=== PATIENT | male | born 1975 | race Caucasian/White ===

== ENCOUNTER 2017-07-10 02:22 | Emergency (ER) | payer OTHER ==
[2017-07-10] MEDS ORDERED: Lidocaine 1% 20 ML MDV INJECT ONE (02:40)
[2017-07-10] MEDS ORDERED: Bacitracin Oint 1 GM U/D Packet TOP ONE (02:40)
--- NOTE | 2017-07-10 03:11 | EDM.PDOC ---
ED HPI GENERAL MEDICAL PROBLEM - General Chief Complaint: Upper Extremity Injury/Pain Stated Complaint: SMASHED RIGHT RING FINGER Time Seen by Provider: 07/10/17 03:07 - History of Present Illness INITIAL COMMENTS - FREE TEXT/NARRATIVE: HISTORY AND PHYSICAL: History of present illness: Patient is 41-year-old male presents with a concern of acute injury to the fourth digit of his right hand that occurred tonight at work when he smashed it. He denies other trauma concern states his tetanus is up-to-date Review of systems: As per history of present illness and below otherwise all systems reviewed and negative. Past medical history: As per history of present illness and as reviewed below otherwise noncontributory. Surgical history: As per history of present illness and as reviewed below otherwise noncontributory. Social history: No reported history of drug or alcohol abuse. Family history: As per history of present illness and as reviewed below otherwise noncontributory. Physical exam: HEENT: Atraumatic, normocephalic, pupils reactive, negative for conjunctival pallor or scleral icterus, mucous membranes moist, throat clear, neck supple, nontender, trachea midline. Lungs: Clear to auscultation, breath sounds equal bilaterally, chest nontender. Heart: S1S2, regular, negative for clicks, rubs, or JVD. Abdomen: Soft, nondistended, nontender. Negative for masses or hepatosplenomegaly. Negative for costovertebral tenderness. Pelvis: Stable nontender. Genitourinary: Deferred. Rectal: Deferred. Extremities: Patient has a small laceration approximately 1 cm fourth digit of his right hand Cima's neurovascular exam is unremarkable. Neuro: Awake, alert, oriented. Cranial nerves II through XII unremarkable. Cerebellum unremarkable. Motor and sensory unremarkable throughout. Exam nonfocal. Diagnostics: X-ray fourth digit right hand Therapeutics: Wound was anesthetized with 1% lidocaine irrigated Cosopt 0.9 normal saline closed with a single 4-0 nylon interrupted suture dressing was applied aluminum/ foam splint was also applied Impression: #1 fracture distal phalanx fourth digit right hand #2 laceration fourth digit Definitive disposition and diagnosis as appropriate pending reevaluation and review of above. right index finger Pain Score (Numeric/FACES): 2 - Related Data Allergies Allergy/AdvReac Type Severity Reaction Status Date / Time No Known Allergies Allergy Verified 07/10/17 02:28 Home Meds: Home Meds . [No Known Home Meds] 07/10/17 [History] Past Medical History - Past Health History Medical/Surgical History: Denies Medical/Surgical History Social & Family History - Family History Family Medical History: Noncontributory - Tobacco Use Smoking Status *Q: Current Every Day Smoker Years of Tobacco use: 23 Packs/Tins Daily: 1 - Recreational Drug Use Recreational Drug Use: No Review of Systems - Review of Systems Review Of Systems: ROS reveals no pertinent complaints other than HPI. ED EXAM, GENERAL - Physical Exam Exam: See Below (See dictation) Course - Vital Signs Last Recorded V/S: Last Vital Signs Temp 36.9 C 07/10/17 02:22 Pulse 94 07/10/17 02:22 Resp 18 07/10/17 02:22 BP 156/66 H 07/10/17 02:22 Pulse Ox 98 07/10/17 02:22 - Orders/Labs/Meds Orders: Active Orders 24 hr Category Date Time Status Fingers Fourth Digit Rt F8 [CR] Stat Exams 07/10/17 02:38 Taken Meds: Medications Discontinued Medications Generic Name Dose Route Start Last Admin Trade Name Freq PRN Reason Stop Dose Admin Bacitracin 1 dose 07/10/17 02:40 Bacitracin Oint 1 Gm TOP 07/10/17 02:41 ONETIME ONE Lidocaine HCl 20 ml 07/10/17 02:40 07/10/17 03:04 Xylocaine 1% INJECT 07/10/17 02:41 20 ml ONETIME ONE Administration Departure - Departure Time of Disposition: 03:09 Disposition: Home, Self-Care 01 Condition: Good Clinical Impression: Closed fracture of tuft of distal phalanx of finger - Discharge Information Referrals: PCP,None [Primary Care Provider] - Additional Instructions: The following information is given to patients seen in the emergency department who are being discharged to home. This information is to outline your options for follow-up care. We provide all patients seen in our emergency department with a follow-up referral. The need for follow-up, as well as the timing and circumstances, are variable depending upon the specifics of your emergency department visit. If you don't have a primary care physician on staff, we will provide you with a referral. We always advise you to contact your personal physician following an emergency department visit to inform them of the circumstance of the visit and for follow-up with them and/or the need for any referrals to a consulting specialist. The emergency department will also refer you to a specialist when appropriate. This referral assures that you have the opportunity for followup care with a specialist. All of these measure are taken in an effort to provide you with optimal care, which includes your followup. Under all circumstances we always encourage you to contact your private physician who remains a resource for coordinating your care. When calling for followup care, please make the office aware that this follow-up is from your recent emergency room visit. If for any reason you are refused follow-up, please contact the [facility] emergency department at and asked to speak to the emergency department charge nurse. [facility] [address] [place] [id number] Keflex as prescribed follow-up hand surgery called to schedule appointment splint as directed and return as needed as discussed suture removal 10-14 days - My Orders Last 24 Hours: My Active Orders 07/10/17 02:38 Fingers Fourth Digit Rt F8 [CR] Stat - Assessment/Plan Last 24 Hours: My Active Orders 07/10/17 02:38 Fingers Fourth Digit Rt F8 [CR] Stat
--- NOTE | 2017-07-10 15:18 | CR ---
EXAM DATE: 07/10/17 PATIENT'S AGE: 41 Patient: TOMAS RUSSO Facility: [place], [place] Site . Site : [id number] Study: XRay Extremity Right Finger [id number]/20/2018 2:54:32 AM Ordering Physician: Doctor Bocanegra Final Report: INDICATION: Trauma TECHNIQUE: Three views 4th digit right hand COMPARISON: None FINDINGS: Bones: Displaced distal tuft fracture 4th digit. Joint spaces: Unremarkable. Soft tissues: Unremarkable. IMPRESSION: Displaced distal tuft fracture 4th digit right hand. Dictated by Noe Peterson MD @ 07/10/2017 2:59:56 AM Dictated by: Noe Peterson MD @ 07/10/2017 03:00:01 (Electronic Signature) Report Signed by Proxy. BLAZE
== END 2017-07-10 03:20 | disposition home or self-care (01) ==
LOC: MW.ED 02:22
DX: S62.634A Displaced fracture of distal phalanx of right ring finger, initial encounter for closed fracture (principal); S61.214A Laceration without foreign body of right ring finger without damage to nail, initial encounter; F17.210 Nicotine dependence, cigarettes, uncomplicated; W23.0XXA Caught, crushed, jammed, or pinched between moving objects, initial encounter; Y92.89 Other specified places as the place of occurrence of the external cause; Y99.0 Civilian activity done for income or pay
CPT/HCPCS: 12001; 73140-26-F8; 73140-F8; 99283